=== PATIENT | female | born 1955 | race Caucasian/White ===

== ENCOUNTER 2019-02-25 03:44 | Inpatient (IN) ==
[2019-02-19 08:27] LABS: URINE SOURCE CLEAN CATCH
--- NOTE | 2019-02-19 08:41 | EKG Report ---
Test Performed on : 02/19/2019 08:05:51 AM Test Reason : PAT Blood Pressure : / mmHG Vent. Rate : 084 BPM Atrial Rate : 084 BPM P-R Int : 132 ms QRS Dur : 082 ms QT Int : 336 ms P-R-T Axes : 073 075 070 degrees QTc Int : 397 ms Normal sinus rhythm. Possible Left atrial enlargement Borderline ECG When compared with ECG of 19-NOV-2015 14:20, Sinus rhythm. has replaced Junctional rhythm. Confirmed by Hilda DELUNA, Saurav Gamino ([id number]) on 02/19/2019 3:27:48 PM
[2019-02-19 08:54] LABS: BASO# 0.03 X1000 (0.0-0.2); BASO% 0.2 % (0.0-0.8); EOS# 0.33 X1000 (0.0-0.7); EOS% 2.7 % (0.0-10.0); HEMATOCRIT 41.9 % (37.0-47.0); HEMOGLOBIN 13.3 g/dL (12.0-16.0); IMM GRAN# 0.08 X1000 (0.0-0.04); IMM GRAN% 0.6 % (0.0-0.5); LYMPH# 2.87 X1000 (1.2-3.4); LYMPH% 23.2 % (20.5-51.1); MCH 29.2 PG (27-31); MCHC 31.7 g/dL (33-37); MCV 91.9 FL (81-99); MONO% 6.5 % (1.7-9.3); MPV 11.7 FL (7.4-10.4); NEUT# 8.27 X1000 (1.4-6.5); NEUT% 66.8 % (42.2-75.2); PLT 290 X1000 (130-400); RBC 4.56 XMIL (4.2-5.4); RDW 16.7 % (11.5-14.5); WBC 12.38 X1000 (4.8-10.8)
[2019-02-19 08:55] LABS: BILIRUBIN URINE NEGATIVE (NEGATIVE); BLOOD URINE NEGATIVE (NEGATIVE); COLOR YELLOW; GLUCOSE URINE NEGATIVE (NEGATIVE); KETONE URINE NEGATIVE (NEGATIVE); LEUKOCYTES URINE NEGATIVE (NEGATIVE); NITRITE URINE NEGATIVE (NEGATIVE); PH URINE 6.5; PROTEIN URINE NEGATIVE (NEGATIVE); SP GRAVITY URINE 1.007; TURBIDITY URINE CLEAR (CLEAR); UROBILINOGEN URINE NORMAL (NORMAL)
[2019-02-19 08:57] LABS: UR EPITHELIAL CELLS <10 /HPF (<10); URINE BACTERIA NEGATIVE /HPF; URINE RBC <10 /HPF (<10); URINE WBC <10 /HPF (<10)
[2019-02-19 09:02] LABS: INR 0.86; PROTIME 12.4 Seconds (11.0-16.0)
[2019-02-19 09:03] LABS: PTT 26.7 Seconds (22.3-41.8)
[2019-02-19 09:22] LABS: AGAP 7; BUN 10 mg/dL (8-22); CALCIUM 9.3 mg/dL (8.8-10.2); CHLORIDE 102 mmol/L (98-107); COSMO 281; CREATININE 0.6 mg/dL (0.5-0.9); ESTIMATED GFR > 60; GLUCOSE 113 mg/dL (70-104); POTASSIUM 4.5 mmol/L (3.5-5.1); SODIUM 141 mmol/L (136-145); TCO2 32 mmol/L (25-35)
[2019-02-25] MEDS ORDERED: COLACE ONE (06:42)
[2019-02-25] MEDS ORDERED: PEPCID ONE (06:42)
[2019-02-25] MEDS ORDERED: KEFZOL 1 GM/D5W 2 GM/100 ML IVPB ONE (06:43)
[2019-02-25] MEDS ORDERED: LYRICA ONE (06:43)
[2019-02-25] MEDS ORDERED: LR 1,000 ML ONE (06:43)
[2019-02-25] MEDS ORDERED: REGLAN ONE (06:43)
[2019-02-25] MEDS ORDERED: DIPRIVAN 1% ONE (07:06)
[2019-02-25] MEDS ORDERED: MARCAINE 0.25% PF/EPI 1:200,000 ONE (07:32)
[2019-02-25] MEDS ORDERED: VANCOMYCIN ONE (07:32)
[2019-02-25] MEDS ORDERED: DURAMORPH ONE (07:32)
[2019-02-25] MEDS ORDERED: TORADOL ONE (07:32)
[2019-02-25] MEDS ORDERED: NEOSPORIN G.U. IRRIGANT ONE (07:33)
[2019-02-25] MEDS ORDERED: EXPAREL 1.3% ONE (07:33)
[2019-02-25] MEDS ORDERED: SODIUM CHLORIDE 0.9% ONE (07:33)
[2019-02-25] MEDS ORDERED: OFIRMEV 1000 MG/ISOTONIC SOLN 1,000 MG/100 ML BOTTLE ONE (09:30)
[2019-02-25] MEDS ORDERED: ZOFRAN ONE (09:30)
[2019-02-25] MEDS: CYKLOKAPRON 1,000 MG/NS 2,000 MG/200 ML IVPB ONE ×2 (09:30→10:19)
[2019-02-25] MEDS ORDERED: DECADRON ONE (09:30)
[2019-02-25] MEDS ORDERED: XYLOCAINE-MPF 2% ONE (09:30)
[2019-02-25] MEDS ORDERED: DILAUDID ONE (09:39)
[2019-02-25 11:09] LABS: URINE SOURCE CATH
[2019-02-25 11:13] LABS: BILIRUBIN URINE NEGATIVE (NEGATIVE); BLOOD URINE NEGATIVE (NEGATIVE); COLOR STRAW; GLUCOSE URINE NEGATIVE (NEGATIVE); KETONE URINE NEGATIVE (NEGATIVE); LEUKOCYTES URINE NEGATIVE (NEGATIVE); NITRITE URINE NEGATIVE (NEGATIVE); PH URINE 5.5; PROTEIN URINE NEGATIVE (NEGATIVE); SP GRAVITY URINE 1.002; TURBIDITY URINE CLEAR (CLEAR); UR EPITHELIAL CELLS <10 /HPF (<10); URINE BACTERIA NEGATIVE /HPF; URINE RBC <10 /HPF (<10); URINE WBC <10 /HPF (<10); UROBILINOGEN URINE NORMAL (NORMAL)
--- NOTE | 2019-02-25 11:21 | Diag Imaging Result Doc PS360 ---
KNEE 1-2 VIEWS-RIGHT - 02/25/2019 INDICATION: post op total knee TECHNIQUE: Two views COMPARISON: None FINDINGS: There has been right total knee arthroplasty. Alignment is anatomic. No hardware fracture or loosening. IMPRESSION: No complication. Electronically signed by Yunior Corley 02/25/2019 11:19 AM
[2019-02-25] MEDS ORDERED: NS 1,000 ML ONE (11:37)
[2019-02-25] MEDS ORDERED: OXY IR ONE (11:51)
[2019-02-25] MEDS ORDERED: OXY IR PO PRN ×2 (12:15)
[2019-02-25] MEDS ORDERED: NS 1,000 ML IV SCH (12:15)
[2019-02-25] MEDS ORDERED: ZOFRAN ODT PO PRN (12:15)
[2019-02-25] MEDS ORDERED: ZOFRAN IV PRN (12:15)
[2019-02-25] MEDS ORDERED: MORPHINE IV PRN (12:15)
[2019-02-25] MEDS ORDERED: DUONEB (A & A) INH PRN (13:06)
--- NOTE | 2019-02-25 13:47 | OPERATIVE NOTE ---
PROCEDURE DATE: 02/25/2019 PREOPERATIVE DIAGNOSIS: Degenerative joint disease, right knee. POSTOPERATIVE DIAGNOSIS: Degenerative joint disease, right knee. PROCEDURE: Right total knee replacement. SURGEON: Darlin Peters MD. FARM MACHINERY ASSEMBLER: Lakisha Trevino. MsJose Guadalupe Trevino was necessary for proper retraction and manipulation of the leg during the case. ANESTHESIA: General. COMPLICATION: None. PROCEDURE IN DETAIL: A 63-year-old female presents for right total knee replacement. Risks, benefits, and no guarantees were discussed, and she is willing to proceed. She was taken to the operating room and satisfactory anesthesia obtained. The right knee was prepped and draped in usual sterile fashion. A time-out was taken to confirm operative site, procedure, and patient. The leg was wrapped with an Esmarch and tourniquet inflated to 300 mmHg. A midline incision was then made over the front of the knee followed by a quad tendon sparing arthrotomy. The patella was everted and resurfaced with freehand technique and sized to a 35 medialized dome patella. The patella was subluxed laterally and the knee flexed. An intramedullary hole made in the distal femur and the distal femoral cutting block secured in 5 degrees of valgus. Distal femoral resection was made and the femur sized to a size 5 Depuy Attune femoral implant. The 4-in-1 block was secured and the anterior, posterior, and chamfer cuts sequentially made. Care was taken to maintain PCL. Retractor was placed behind the PCL and tibia to protect the PCL and neurovascular bundle with the knee flexed. The tibial cutting block was secured, and the tibial resection made. Flexion and extension gaps were equal roughly at 7 to 8 mm spacer. The tibia sized to a size 4 tibial tray. A trial reduction was performed with good stability and range of motion with an 8 mm spacer. The trial implants were removed and the bony surfaces thoroughly irrigated with pulsatile lavage. Cement with a gram of vancomycin was then utilized to cement a DePuy Attune size 4 rotating platform tibial base plate, a size right cruciate retaining 5 narrow femoral implant, and a 35 medialized dome patella. The cement was removed with a [place] elevator. While the cement cured, the joint capsule was injected with Exparel and a Hemovac drain placed. After curing the cement, a size 5 cruciate retaining rotating platform polyethylene bearing, 8 mm thick, was inserted into the tibial tray and the knee reduced. Final range of motion was 0 to 125 degrees with midline patellar tracking. The wound was copiously irrigated and then closed over the drain with #1 Vicryl in the arthrotomy, 2-0 Vicryl in the subcutaneous, and skin rima on the skin edges. Sterile dressings completed the closure, and the patient was recovered from anesthesia and transferred to the recovery room in stable condition. No intraoperative complications were noted. Instrument count, sponge count were correct at the time of closure. cc: MD Asa Mcginnis MD
[2019-02-25] MEDS: MORPHINE IV PRN (16:24)
--- NOTE | 2019-02-25 16:24 | CONSULTATION ---
DATE OF CONSULTATION: 02/25/2019 PRIMARY CARE PROVIDER: Dr. Foy. REFERRING PHYSICIAN: Dr. Peters. REASON FOR CONSULT: Medical management. HISTORY OF PRESENT ILLNESS: Ms. Rodrigues is a 63-year-old female who carries a past medical history of COPD, diabetes mellitus, she is on home O2 at night, GERD, sleep apnea, some noncompliance issues with her CPAP or BiPAP machine, AAA being watched by vascular at [facility], brain aneurysm in the past, who underwent a right total knee replacement today by Dr. Peters. We will initiate her on her home medications as appropriate. PAST MEDICAL HISTORY: COPD on home O2 at night, sleep apnea, issues with medical compliance with CPAP machine at night, GERD, diabetes mellitus, hypertension, diastolic heart failure, AAA. PAST SURGICAL HISTORY: Brain aneurysm, hysterectomy, cholecystectomy, 4 back surgeries, mass removed from her throat, tonsillectomy. ALLERGIES: Levofloxacin and sulfa. HOME MEDICATIONS: 1. ProAir inhaler 2 puffs inhaled q.4 hours p.r.n. 2. Lipitor 40 mg p.o. daily. 3. Baclofen 10 mg p.o. b.i.d. 4. Symbicort 160/4.5 mcg inhaler 2 puffs inhaled b.i.d. 5. Plavix 75 mg p.o. daily. 6. Flexeril 10 mg p.o. daily. 7. Cymbalta 60 mg p.o. daily. 8. Nexium 40 mg p.o. daily. 9. Lasix 40 mg p.o. daily p.r.n. edema. 10. Gabapentin 100 mg p.o. t.i.d. 11. Canova 10/325 one each p.o. t.i.d. p.r.n. 12. Metformin 500 mg p.o. b.i.d. 13. Metoprolol 50 mg p.o. q.a.m. 14. Potassium chloride 20 mEq p.o. daily p.r.n. 15. Lyrica 150 mg p.o. as directed. 16. Restoril 30 mg p.o. at bedtime. 17. Spiriva 2 puffs inhaled at bedtime. 18. Topamax 50 mg p.o. p.r.n. 19. Valtrex 500 mg p.o. t.i.d. p.r.n. HSV 2. PHYSICAL EXAMINATION: Vital Signs: Temperature is 98.8 degrees, heart rate 91, respirations 16, blood pressure 117/63, O2 is 95% on nasal cannula. General: Ms. Rodrigues is a 63-year-old female who is just out of surgery from her right knee replacement. She is somewhat lethargic but she does wake up and answers questions somewhat appropriately. HEENT: Atraumatic, normocephalic. PERRL. Neck: Supple. Trachea midline. Cardiovascular: S1, S2 appreciated. No murmurs, gallops, rubs noted. Respiratory: Lung sounds, scattered rhonchi throughout lung ruiz. No rales or wheezes. GI: Soft, nontender, nondistended. Positive bowel sounds 4 quadrants. : [place] draining clear urine. Extremities: She does have her right knee wrapped. She does have drainage tube with blood noted in the tube. Neurologic: No focal deficits noted. She was complaining of right knee pain. LABORATORY DATA: Will be reviewed in the morning. DIAGNOSTICS: Knee x-ray does not show anything acute, just stable surgical changes. ASSESSMENT AND PLAN: 1. Chronic obstructive pulmonary disease, on home O2 at night. We will continue with supplemental O2, aggressive pulmonary toilet, home breathing treatments, p.r.n. DuoNeb along with scheduled, as well as continue with incentive spirometry and turn, cough, deep breathe as per orders. 2. Diabetes mellitus. Will place her on sliding scale with pattern blood sugars. 3. Gastroesophageal reflux disease. Continue PPI. 4. Hypertension. Continue home medications. 5. Diastolic heart failure. We will hold her Lasix and potassium for now. Continue to monitor her I's and O's daily. 6. Right knee replacement by Dr. Peters. Treatment as per the orthopedic as well as pain management. Further recommendations to follow physician evaluation, laboratory and diagnostic data. Dictated by KENDRA Fontana for Asa Meza MD cc: sAa Meza MD
[2019-02-25] MEDS: HUMALOG SUBQ SCH ×2 (16:25→22:00)
[2019-02-25] MEDS: NEURONTIN PO SCH ×2 (16:31→21:42)
[2019-02-25] MEDS: TYLENOL PO SCH ×2 (16:31→21:43)
[2019-02-25] MEDS: KEFZOL 2 GM/D5W 2 GM/50 ML IVPB IV SCH (16:31)
--- NOTE | 2019-02-25 16:33 | ORTHOPAEDICS PROGRESS NOTE ---
DATE: 02/25/2019 SUBJECTIVE: Ms. Rodrigues is seen status post total knee replacement. OBJECTIVE: Vital signs: At the present time she is afebrile with stable vital signs. Extremities: Her bandage is clean and dry. She appears to be motor and sensory intact. ASSESSMENT AND PLAN: She is doing well from a pain standpoint. We have discussed mobilizing her gradually. We will plan on discharge home when she is mobilizing well. cc: MD Asa Mcginnis MD
[2019-02-25] MEDS: ULTRAM PO SCH ×2 (18:35→21:42)
--- NOTE | 2019-02-25 18:41 | CONSULTATION ---
DATE OF CONSULTATION: 02/25/2019 ADDENDUM: The patient was admitted for an elective right knee. She is seen postop. She seems to be doing okay. Breathing comfortably. She does have reportedly a right incisional hernia. It is not noticeable on today's exam. Otherwise, her physical exam is unremarkable. Plan is to observe with you. Appreciate consultation. Please see other details per nurse practitioner notes, Kelin Kyle. cc: sAa Meza MD
[2019-02-25] MEDS: SYMBICORT 160/4.5 MICROGM INHALER INH SCH (19:46)
[2019-02-25] MEDS ORDERED: SPIRIVA INH SCH (21:00)
[2019-02-25] MEDS: COLACE PO SCH (21:42)
[2019-02-25] MEDS: CYMBALTA PO SCH (21:44)
[2019-02-26] MEDS: MORPHINE IV PRN ×3 (00:03→09:55)
[2019-02-26] MEDS: KEFZOL 2 GM/D5W 2 GM/50 ML IVPB IV SCH (01:39)
[2019-02-26] MEDS: ULTRAM PO SCH ×2 (05:02→11:18)
[2019-02-26] MEDS: TYLENOL PO SCH ×2 (05:03→11:18)
[2019-02-26] MEDS: HUMALOG SUBQ SCH ×2 (07:02→11:07)
[2019-02-26 07:25] VITALS: BP 123/63
[2019-02-26] MEDS ORDERED: TOPROL XL PO SCH (09:00)
[2019-02-26] MEDS ORDERED: ASPIRIN PO SCH (09:00)
[2019-02-26] MEDS ORDERED: NEXIUM PO SCH (09:00)
[2019-02-26] MEDS ORDERED: MOBIC PO SCH (09:00)
[2019-02-26] MEDS ORDERED: LIPITOR PO SCH (09:00)
[2019-02-26] MEDS ORDERED: PERIDEX MT SCH (09:00)
[2019-02-26] MEDS: SYMBICORT 160/4.5 MICROGM INHALER INH SCH (09:11)
[2019-02-26 09:19] LABS: HEMATOCRIT 34.7 % (37.0-47.0); HEMOGLOBIN 10.5 g/dL (12.0-16.0)
[2019-02-26 09:42] LABS: AGAP 8; BUN 7 mg/dL (8-22); CALCIUM 8.6 mg/dL (8.8-10.2); CHLORIDE 104 mmol/L (98-107); COSMO 282; CREATININE 0.5 mg/dL (0.5-0.9); ESTIMATED GFR > 60; GLUCOSE 151 mg/dL (70-104); POTASSIUM 4.8 mmol/L (3.5-5.1); SODIUM 141 mmol/L (136-145); TCO2 29 mmol/L (25-35)
[2019-02-26] MEDS: COLACE PO SCH (09:50)
[2019-02-26] MEDS: NEURONTIN PO SCH (09:51)
[2019-02-26] MEDS: CYMBALTA PO SCH (09:51)
--- NOTE | 2019-02-26 13:31 | DISCHARGE SUMMARY ---
ADMISSION DATE: 02/25/2019 DISCHARGE DATE: 02/26/2019 DISCHARGE DIAGNOSIS: Right knee degenerative joint disease, status post right total knee arthroplasty. DISCHARGE MEDICATIONS: See discharge medication list. DISPOSITION: The patient is discharged home with home health. DISCHARGE INSTRUCTIONS: Instructions for total knee arthroplasty protocol. Instructed to return to return to see Dr. Peters in 10 to 14 days. HOSPITAL COURSE: On the day of admission, patient underwent a right total knee arthroplasty. Her postoperative course was unremarkable. At discharge, she is afebrile. Tolerating regular diet. She has had 60 mL drainage from her Hemovac drain which we discontinued. Her right knee dressing is clean, dry, and intact. Her right leg is soft. She is discharged home after working with physical therapy in stable condition with instructions to follow up as described above. Dictated by TALITA Grimes for Rashi Peters MD cc: TALITA Grimes MD Alexis R. Penot, MD
== END 2019-02-26 11:42 | disposition home health service (06) | DRG 470 ==
LOC: SURHOLD 03:44 → 4N 09:16
PROVIDERS: ADMIT Internal Medicine; ATTEND Orthopaedic Surgery Adult Reconstructive Orthopaedic Surgery
CPT/HCPCS: 73560; 80048; 81001; 82948; 85014; 85018; 85025; 85610; 85730; 86850; 86900; 86901; 88305; 88311; 94640; 94761; 94799; 97110; 97162; 97530; A9270; C9290; J0131; J0690; J1100; J1170; J1815; J1885; J2270; J2274; J2275; J2405; J3370; J7030; J7120; Q9974; S0020; XXXXX